=== PATIENT | male | born 1970 | race American Indian/Alaskan Native ===

== ENCOUNTER 2017-12-08 06:43 | Emergency (ER) | payer OTHER ==
[2017-12-08] MEDS ORDERED: NACL 0.9% 1000 ML 1,000 ML IV ONE (06:57)
[2017-12-08 07:36] LABS: Bilirubin,Urine NEG (Negative); Blood,Urine SM (Negative); Color,Urine Yellow (Yellow); Mucus,Urine FEW /HPF; Urobilinogen,Urine < 2.0 mg/dL (<2.0)
[2017-12-08 07:58] LABS: Alanine Aminotransferase 34 units/L (7-56); Albumin 4.6 g/dL (3.9-5); BUN/Creatinine Ratio 13; Blood Urea Nitrogen 12 mg/dL (9-20); Calcium 9.7 mg/dL (8.4-10.2); Hemolysis Index 58
[2017-12-08 08:07] LABS: Basophils # (Auto) 0.1 K/mm3 (0.0-0.1); Basophils % (Auto) 1.3 % (0.0-1.8); Eosinophils % (Auto) 0.1 % (0.0-4.3); Hematocrit 43.9 % (35.5-45.6); Hemoglobin 15.2 gm/dl (11.8-15.2); Lymphocytes # (Auto) 1.5 K/mm3 (1.2-5.4); Lymphocytes % (Auto) 22.9 % (13.4-35.0); Mean Corpuscular HGB Conc 35 % (32-34); Mean Corpuscular Hemoglobin 34 pg (28-32); Mean Corpuscular Volume 97 fl (84-94); Monocytes # (Auto) 0.8 K/mm3 (0.0-0.8); Monocytes % (Auto) 12.7 % (0.0-7.3); Platelet Count 198 K/mm3 (140-440); Red Blood Count 4.51 M/mm3 (3.65-5.03)
[2017-12-08 08:39] VITALS: BP 143/96
--- NOTE | 2017-12-08 09:06 | Emergency Department Report ---
ED Abdominal Pain HPI - General Chief Complaint: Abdominal Pain Stated Complaint: ABD PAIN Time Seen by Provider: 12/08/17 09:01 Source: patient Mode of arrival: Ambulatory Limitations: No Limitations - History of Present Illness Initial Comments: Patient is a 47-year-old male presents to emergency room with complaints of epigastric pain that started 2 days ago. Patient states that he had nausea and vomiting 1 this morning. Patient states he has a history of GERD and peptic ulcers. Patient states that he is been taking his Nexium regularly but for the past 3 days patient has been eating hot wings and spicy food and fried foods. He denies fever or chills. Patient denies any other physical complaints or pain. Patient denies diarrhea. Patient denies nausea vomiting at this time. MD Complaint: abdominal pain -: Sudden Radiation: none Severity: severe Severity scale (0 -10): 8 Quality: burning Consistency: constant Improves With: medication, rest Worsens With: other (fried foods) Associated Symptoms: nausea, vomiting. denies: diarrhea, fever, chills, constipation, dysuria, hematemesis, hematochezia, melena, hematuria, anorexia, syncope Treatments Prior to Arrival: antacids - Related Data Home Medications Medication Instructions Recorded Confirmed Last Taken amLODIPine [Norvasc] 10 mg PO DAILY 02/26/13 02/13/15 02/26/13 Previous Rx's Medication Instructions Recorded Last Taken Type Famotidine [Pepcid] 20 mg PO BID #60 tablet 02/14/15 Unknown Rx Folic Acid [Folvite] 1 mg PO QDAY #30 tablet 02/14/15 Unknown Rx Metoprolol [Lopressor TAB] 12.5 mg PO BID #60 tablet 02/14/15 Unknown Rx Sodium Bicarbonate 325 mg PO DAILY #14 tablet 02/14/15 Unknown Rx Thiamine [Vitamin B-1] 100 mg PO QDAY #30 tablet 02/14/15 Unknown Rx Esomeprazole Magnesium [Nexium] 40 mg PO DAILY 30 Days #30 12/08/17 Unknown Rx capsule. Allergies Allergy/AdvReac Type Severity Reaction Status Date / Time No Known Allergies Allergy Verified 02/26/13 20:12 ED Review of Systems ROS: Stated complaint: ABD PAIN Other details as noted in HPI Constitutional: denies: chills, fever Eyes: denies: eye pain, eye discharge, vision change ENT: denies: ear pain, throat pain Respiratory: denies: cough, shortness of breath, wheezing Cardiovascular: denies: chest pain, palpitations Endocrine: no symptoms reported Gastrointestinal: abdominal pain, nausea, vomiting. denies: diarrhea Genitourinary: denies: urgency, dysuria Musculoskeletal: denies: back pain, joint swelling, arthralgia Skin: denies: rash, lesions Neurological: denies: headache, weakness, paresthesias Psychiatric: denies: anxiety, depression Hematological/Lymphatic: denies: easy bleeding, easy bruising ED Past Medical Hx - Past Medical History Previous Medical History?: Yes Hx Hypertension: Yes Hx Congestive Heart Failure: No Hx Diabetes: No Hx Deep Vein Thrombosis: No Hx Pulmonary Embolism: No Hx GERD: Yes Hx Renal Disease: No Hx Kidney Stones: No Hx Asthma: Yes Hx COPD: No Hx Tuberculosis: No Hx HIV: No - Surgical History Past Surgical History?: Yes Hx Coronary Stent: No Hx Open Heart Surgery: No Hx Pacemaker: No Hx Internal Defibrillator: No Additional Surgical History: Lipotripsy, Kidney stone removal surgery - Family History Family history: no significant - Social History Smoking Status: Never Smoker Substance Use Type: None - Medications Home Medications: Home Medications Medication Instructions Recorded Confirmed Last Taken Type amLODIPine [Norvasc] 10 mg PO DAILY 02/26/13 02/13/15 02/26/13 History Famotidine [Pepcid] 20 mg PO BID #60 tablet 02/14/15 Unknown Rx Folic Acid [Folvite] 1 mg PO QDAY #30 tablet 02/14/15 Unknown Rx Metoprolol [Lopressor TAB] 12.5 mg PO BID #60 tablet 02/14/15 Unknown Rx Sodium Bicarbonate 325 mg PO DAILY #14 tablet 02/14/15 Unknown Rx Thiamine [Vitamin B-1] 100 mg PO QDAY #30 tablet 02/14/15 Unknown Rx Esomeprazole Magnesium [Nexium] 40 mg PO DAILY 30 Days #30 12/08/17 Unknown Rx capsule. ED Physical Exam - General Limitations: No Limitations General appearance: alert, in no apparent distress - Head Head exam: Present: atraumatic, normocephalic - Eye Eye exam: Present: normal appearance - ENT ENT exam: Present: mucous membranes moist - Neck Neck exam: Present: normal inspection - Respiratory Respiratory exam: Present: normal lung sounds bilaterally. Absent: respiratory distress - Cardiovascular Cardiovascular Exam: Present: regular rate, normal rhythm. Absent: systolic murmur, diastolic murmur, rubs, gallop - GI/Abdominal GI/Abdominal exam: Present: soft, tenderness (epigastric tenderness noted), normal bowel sounds - Rectal Rectal exam: Present: deferred - Extremities Exam Extremities exam: Present: normal inspection - Back Exam Back exam: Present: normal inspection - Neurological Exam Neurological exam: Present: alert, oriented X3 - Psychiatric Psychiatric exam: Present: normal affect, normal mood - Skin Skin exam: Present: warm, dry, intact, normal color. Absent: rash ED Course Vital Signs 12/08/17 12/08/17 06:42 08:31 Temperature 99.4 F 98.4 F Pulse Rate 98 H 86 Respiratory 18 18 Rate Blood Pressure 149/93 143/96 O2 Sat by Pulse 98 100 Oximetry - Reevaluation(s) Reevaluation #1: Discussed all results with patient. Discussed discharge with patient. We'll give patient a GI cocktail and reassess patient. 12/08/17 10:31 Reevaluation #2: Patient state his symptoms are gone. Patient denies any abdominal pain or discomfort. Patient is stable for discharge. Patient given discharge instructions. Patient denies nausea and vomiting at this time. Patient denies any physical complaints or other complaints as well. Discussed all results with patient. Patient voiced understanding. 12/08/17 11:30 ED Medical Decision Making - Lab Data Result diagrams: 12/08/17 07:29 12/08/17 07:25 - Medical Decision Making H and is a 47-year-old male that presents emergency room with complaints of epigastric abdominal pain. Patient found to have gastritis and uncontrolled reflux. Laboratory findings negative. Lipase negative. Patient instructed to follow up with primary care and GI for further evaluation treatment. Patient states after GI cocktail his SYMPTOMS HAVE RESOLVED. PATIENT IS STABLE FOR DISCHARGE. SHE WAS CURRENTLY TAKING NEXIUM 20 MG DAILY. WE'LL INCREASE PATIENT 'S NEXIUM TO 40 MG DAILY. - Differential Diagnosis gastritis. Nausea vomiting. Reflux. Abdominal pain. Gastroenteritis Critical care attestation.: If time is entered above; I have spent that time in minutes in the direct care of this critically ill patient, excluding procedure time. ED Disposition Clinical Impression: Gastritis Qualifiers: Gastritis type: unspecified gastritis Chronicity: acute Gastritis bleeding: without bleeding Qualified Code(s): K29.00 - Acute gastritis without bleeding Abdominal pain Qualifiers: Abdominal location: epigastric Qualified Code(s): R10.13 - Epigastric pain Disposition: TO HOME OR SELFCARE Is pt being admited?: No Does the pt Need Aspirin: No Condition: Stable Instructions: Gastritis (ED), Diet for Ulcers and Gastritis (ED) Additional Instructions: Patient follow-up with primary care in 3-5 days. Patient follow up with GI in 3 -5 days. Patient to take meds as directed. Patient to increase water. Patient take Tylenol when necessary for pain. Patient eat a GERD/gastritis diet. Patient to return to ER if condition worsens Prescriptions: Esomeprazole Magnesium [Nexium] 40 mg PO DAILY 30 Days #30 capsule. Referrals: PRIMARY CARE, [Primary Care Provider] - 3-5 Days Forms: Work/School Release Form(ED) Time of Disposition: 11:59
[2017-12-08] MEDS ORDERED: ALUM-MAG HYDROX-SIMETH 200-200-20MG/5ML PO ONE (10:24)
[2017-12-08] MEDS ORDERED: LIDOCAINE VISCOUS 2% PO ONE (10:24)
== END 2017-12-08 12:15 | disposition home or self-care (01) ==
LOC: ED 06:43
DX: K29.00 Acute gastritis without bleeding (principal); I10 Essential (primary) hypertension; J45.909 Unspecified asthma, uncomplicated; K21.9 Gastro-esophageal reflux disease without esophagitis
CPT/HCPCS: 36415; 80053; 81001; 83690; 85025; 99283

== ENCOUNTER 2019-05-24 18:18 | Emergency (ER) | payer SELFPAY ==
--- NOTE | 2019-05-24 19:24 | Emergency Department Report ---
Blank Doc - Documentation Documentation: 49-year-old male that presents with sukhdev flank pain. This initial assessment/diagnostic orders/clinical plan/treatment(s) is/are subject to change based on patient's health status, clinical progression and re- assessment by fellow clinical providers in the ED. Further treatment and workup at subsequent clinical providers discretion. Patient/guardians urged not to elope from the ED as their condition may be serious if not clinically assessed and managed. Initial orders include: 1- Patient sent to [facility] for further evaluation and treatment 2- UA
[2019-05-24 20:35] LABS: Bilirubin,Urine NEG (Negative); Blood,Urine NEG (Negative); Color,Urine Amber (Yellow); Mucus,Urine FEW /HPF; Urobilinogen,Urine < 2.0 mg/dL (<2.0)
[2019-05-24] MEDS ORDERED: KETOROLAC 30 MG/1 ML INJ IM ONE (21:21)
--- NOTE | 2019-05-24 21:25 | Emergency Department Report ---
<KEYSHAWN TAYLOR - Last Filed: 05/24/19 23:19> ED Back Pain/Injury HPI - General Chief Complaint: Back Pain/Injury Stated Complaint: BACK PAIN EXTREME Time Seen by Provider: 05/24/19 19:23 Source: patient Limitations: No Limitations - History of Present Illness Initial Comments: 49-year-old -[place]os[place] male with a past medical history of kidney stones presents to the emergency room for back pain 4 days. Patient does admit to some mild dysuria denies any pelvic pain denies any penile discharge nothing makes it worse nothing makes it better. Patient states his and taken Tylenol 650 about resolution of pain. States that the pain is constant and daily. MD Complaint: back pain Onset/Timin -: days(s) Similar Symptoms Previously: Yes (Kidney stones) Radiation: none Severity scale (0 -10): 8 Quality: aching Consistency: constant Improves With: none Worsens With: none - Related Data Home Medications Medication Instructions Recorded Confirmed Last Taken amLODIPine 10 mg PO DAILY 02/26/13 02/13/15 02/26/13 Previous Rx's Medication Instructions Recorded Last Taken Type Famotidine [Pepcid] 20 mg PO BID #60 tablet 02/14/15 Unknown Rx Folic Acid [Folvite] 1 mg PO QDAY #30 tablet 02/14/15 Unknown Rx Metoprolol [Lopressor TAB] 12.5 mg PO BID #60 tablet 02/14/15 Unknown Rx Sodium Bicarbonate 325 mg PO DAILY #14 tablet 02/14/15 Unknown Rx Thiamine [Vitamin B-1] 100 mg PO QDAY #30 tablet 02/14/15 Unknown Rx Esomeprazole Magnesium [Nexium] 40 mg PO DAILY 30 Days #30 12/08/17 Unknown Rx capsule. Ketorolac [Toradol] 10 mg PO Q6H PRN #20 tablet 05/25/19 Unknown Rx Oxycodone HCl/Acetaminophen 1 each PO Q6HR PRN #12 tablet 05/25/19 Unknown Rx [Percocet 7.5/325 mg] Tamsulosin [Flomax] 0.4 mg PO QDAY 5 Days #5 cap 05/25/19 Unknown Rx Allergies Allergy/AdvReac Type Severity Reaction Status Date / Time No Known Allergies Allergy Verified 02/26/13 20:12 ED Review of Systems Comment: All other systems reviewed and negative ED Past Medical Hx - Past Medical History Hx Hypertension: Yes Hx Congestive Heart Failure: No Hx Diabetes: No Hx Deep Vein Thrombosis: No Hx Pulmonary Embolism: No Hx GERD: Yes Hx Renal Disease: No Hx Kidney Stones: No Hx Asthma: Yes Hx COPD: No Hx Tuberculosis: No Hx HIV: No - Surgical History Hx Coronary Stent: No Hx Open Heart Surgery: No Hx Pacemaker: No Hx Internal Defibrillator: No Additional Surgical History: Lipotripsy, Kidney stone removal surgery - Social History Smoking Status: Never Smoker Substance Use Type: Alcohol - Medications Home Medications: Home Medications Medication Instructions Recorded Confirmed Last Taken Type amLODIPine 10 mg PO DAILY 02/26/13 02/13/15 02/26/13 History Famotidine [Pepcid] 20 mg PO BID #60 tablet 02/14/15 Unknown Rx Folic Acid [Folvite] 1 mg PO QDAY #30 tablet 02/14/15 Unknown Rx Metoprolol [Lopressor TAB] 12.5 mg PO BID #60 tablet 02/14/15 Unknown Rx Sodium Bicarbonate 325 mg PO DAILY #14 tablet 02/14/15 Unknown Rx Thiamine [Vitamin B-1] 100 mg PO QDAY #30 tablet 02/14/15 Unknown Rx Esomeprazole Magnesium [Nexium] 40 mg PO DAILY 30 Days #30 12/08/17 Unknown Rx capsule.dr Ketorolac [Toradol] 10 mg PO Q6H PRN #20 tablet 05/25/19 Unknown Rx Oxycodone HCl/Acetaminophen 1 each PO Q6HR PRN #12 tablet 05/25/19 Unknown Rx [Percocet 7.5/325 mg] Tamsulosin [Flomax] 0.4 mg PO QDAY 5 Days #5 cap 05/25/19 Unknown Rx ED Physical Exam - General Limitations: No Limitations General appearance: alert, in no apparent distress - Head Head exam: Present: atraumatic, normocephalic - Eye Eye exam: Present: normal appearance - ENT ENT exam: Present: mucous membranes moist - Neck Neck exam: Present: normal inspection - Respiratory Respiratory exam: Present: normal lung sounds bilaterally. Absent: respiratory distress - Cardiovascular Cardiovascular Exam: Present: regular rate, normal rhythm. Absent: systolic murmur, diastolic murmur, rubs, gallop - GI/Abdominal GI/Abdominal exam: Present: soft, normal bowel sounds - Rectal Rectal exam: Present: deferred - Extremities Exam Extremities exam: Present: normal inspection - Back Exam Back exam: Present: normal inspection - Neurological Exam Neurological exam: Present: alert, oriented X3 - Psychiatric Psychiatric exam: Present: normal affect, normal mood - Skin Skin exam: Present: warm, dry, intact, normal color. Absent: rash ED Medical Decision Making - Radiology Data Radiology results: report reviewed Patient: MIHAI SHELLEY MR#: [id number] : 1970 Acct:[id number] Age/Sex: 49 / M ADM Date: 05/24/19 Loc: ED Attending Dr: Ordering Physician: JOCELYN AYALA Date of Service: 05/24/19 Procedure(s): CT abdomen pelvis wo con Accession Number(s): [id number] cc: JOCELYN AYALA CT ABDOMEN AND PELVIS WITHOUT CONTRAST INDICATION / CLINICAL INFORMATION: back pain h/x renal stones. Bilateral flank pain. TECHNIQUE: Axial CT images were obtained through the abdomen and pelvis without IV contrast. All CT scans at this location are performed using CT dose reduction for ALARA by means of automated exposure control. COMPARISON: None available. FINDINGS: LOWER CHEST: Thickened distal thoracic esophagus. LIVER: No significant abnormality. GALLBLADDER: No significant abnormality. BILE DUCTS: No significant abnormality. PANCREAS: No significant abnormality. SPLEEN: No significant abnormality. ADRENALS: No significant abnormality. RIGHT KIDNEY and URETER: Severe chronic atrophy of the right kidney with severe hydroureteronephrosis with focal transition noted just below the right ureteropelvic junction of the mid right ureter. LEFT KIDNEY and URETER: Tiny nonobstructive stones. STOMACH and SMALL BOWEL: No significant abnormality. COLON: No significant abnormality. APPENDIX: No significant abnormality. PERITONEUM: No free fluid. No free air. No fluid collection. LYMPH NODES: No significant adenopathy. AORTA and ARTERIES: No significant abnormality. IVC and VEINS: No significant abnormality. URINARY BLADDER: No significant abnormality. REPRODUCTIVE ORGANS: No significant abnormality. ADDITIONAL FINDINGS: None. SKELETAL SYSTEM: No significant abnormality. IMPRESSION: 1. Chronic atrophy of the right kidney with severe right hydroureteronephrosis with transition noted within the mid right ureter. 2. Punctate stents within the left collecting system without evidence of hydronephrosis. 3. Few colonic diverticula without diverticulitis. 4. Abnormally thickened distal thoracic esophagus could represent esophagitis but is ultimately nonspecific. Signer Name: Zachary Barlow MD Signed: 05/24/2019 10:45 PM Workstation Name: [id number] Transcribed By: BC Dictated By: Zachary Barlow MD Electronically Authenticated By: Zachary Barlow MD Signed Date/Time: 05/24/192244 DD/ 40 TD/TT: - Medical Decision Making 49-year-old -[place] male with a past medical history of kidney stones presents to the emergency room for back pain 4 days. Patient does admit to some mild dysuria denies any pelvic pain denies any penile discharge nothing makes it worse nothing makes it better. Patient states his and taken Tylenol 650 about resolution of pain. States that the pain is constant and daily. CT of abdomen without contrast. Toradol 30 mg IM given for pain management. ED Disposition Disposition: DC-01 TO HOME OR SELFCARE Is pt being admited?: No Does the pt Need Aspirin: No Condition: Stable Instructions: Hydronephrosis (ED) Additional Instructions: Take medication as prescribed. Follow up with urology. Increase her fluid intake. Prescriptions: Tamsulosin [Flomax] 0.4 mg PO QDAY 5 Days #5 cap Oxycodone HCl/Acetaminophen [Percocet 7.5/325 mg] 1 each PO Q6HR PRN #12 tablet PRN Reason: Pain Ketorolac [Toradol] 10 mg PO Q6H PRN #20 tablet PRN Reason: Pain Referrals: PRIMARY CARE, [Primary Care Provider] - 3-5 Days SARIAH REY MD [Staff Physician] - 3-5 Days Forms: Work/School Release Form(ED) <JILLIAN CABALLERO III - Last Filed: 05/25/19 02:33> ED Review of Systems ROS: Stated complaint: BACK PAIN EXTREME Other details as noted in HPI ED Course Vital Signs 05/24/19 05/24/19 05/24/19 18:33 19:24 21:25 Temperature 98.8 F 98.8 F Pulse Rate 100 H 101 H Respiratory 16 18 16 Rate Blood Pressure 145/94 145/94 Blood Pressure [Left] O2 Sat by Pulse 97 97 Oximetry 05/25/19 02:25 Temperature 98.2 F Pulse Rate 74 Respiratory 16 Rate Blood Pressure Blood Pressure 144/95 [Left] O2 Sat by Pulse 97 Oximetry - Reevaluation(s) Reevaluation #1: I examined the patient. Patient states he is pain-free. Patient denies nausea vomiting at this time. I discussed plan of care outpatient. Patient agrees with plan of care. I discussed discharge instructions with patient. Patient voiced understanding of discharge instructions. Patient will be given a by mouth challenge and if patient tolerates patient will be discharged home. 05/25/19 01:32 ED Medical Decision Making - Lab Data Result diagrams: 05/24/19 23:29 05/24/19 23:29 Critical care attestation.: If time is entered above; I have spent that time in minutes in the direct care of this critically ill patient, excluding procedure time. ED Disposition Is pt being admited?: No Does the pt Need Aspirin: No Time of Disposition: 02:00
--- NOTE | 2019-05-24 22:50 | Cat Scan Report ---
CT ABDOMEN AND PELVIS WITHOUT CONTRAST INDICATION / CLINICAL INFORMATION: back pain h/x renal stones. Bilateral flank pain. TECHNIQUE: Axial CT images were obtained through the abdomen and pelvis without IV contrast. All CT scans at [facility] location are performed using CT dose reduction for ALARA by means of automated exposure control. COMPARISON: None available. FINDINGS: LOWER CHEST: Thickened distal thoracic esophagus. LIVER: No significant abnormality. GALLBLADDER: No significant abnormality. BILE DUCTS: No significant abnormality. PANCREAS: No significant abnormality. SPLEEN: No significant abnormality. ADRENALS: No significant abnormality. RIGHT KIDNEY and URETER: Severe chronic atrophy of the right kidney with severe hydroureteronephrosis with focal transition noted just below the right ureteropelvic junction of the mid right ureter. LEFT KIDNEY and URETER: Tiny nonobstructive stones. STOMACH and SMALL BOWEL: No significant abnormality. COLON: No significant abnormality. APPENDIX: No significant abnormality. PERITONEUM: No free fluid. No free air. No fluid collection. LYMPH NODES: No significant adenopathy. AORTA and ARTERIES: No significant abnormality. IVC and VEINS: No significant abnormality. URINARY BLADDER: No significant abnormality. REPRODUCTIVE ORGANS: No significant abnormality. ADDITIONAL FINDINGS: None. SKELETAL SYSTEM: No significant abnormality. IMPRESSION: 1. Chronic atrophy of the right kidney with severe right hydroureteronephrosis with transition noted within the mid right ureter. 2. Punctate stents within the left collecting system without evidence of hydronephrosis. 3. Few colonic diverticula without diverticulitis. 4. Abnormally thickened distal thoracic esophagus could represent esophagitis but is ultimately nonsp ecific. Signer Name: Zachary Barlow MD Signed: 05/24/2019 10:45 PM Workstation Name: [id number]
[2019-05-24] MEDS ORDERED: SODIUM CHLORIDE 0.9% 1000 ML 2,000 ML IV ONE (23:22)
[2019-05-24 23:48] LABS: Hematocrit 50.1 % (35.5-45.6); Mean Corpuscular HGB Conc 34 % (32-34); Mean Corpuscular Volume 99 fl (84-94); Platelet Count 209 K/mm3 (140-440); Red Blood Count 5.06 M/mm3 (3.65-5.03); Red Cell Distribution Width 13.6 % (13.2-15.2)
[2019-05-25 00:12] LABS: Alanine Aminotransferase 44 units/L (7-56); Albumin 5.1 g/dL (3.9-5); BUN/Creatinine Ratio 12; Blood Urea Nitrogen 15 mg/dL (9-20); Calcium 10.7 mg/dL (8.4-10.2); Hemolysis Index 5
[2019-05-25] MEDS ORDERED: MORPHINE 4 MG/1 ML INJ IV ONE (00:14)
[2019-05-25] MEDS ORDERED: ONDANSETRON 4 MG/2 ML INJ IV ONE (00:15)
[2019-05-25 02:26] VITALS: BP 144/95
== END 2019-05-25 02:26 | disposition home or self-care (01) ==
LOC: ED 18:18
DX: M54.9 Dorsalgia, unspecified (principal); R10.9 Unspecified abdominal pain; I10 Essential (primary) hypertension; J45.909 Unspecified asthma, uncomplicated; F10.10 Alcohol abuse, uncomplicated; Z87.442 Personal history of urinary calculi; Z79.899 Other long term (current) drug therapy
CPT/HCPCS: 36415; 74176; 80053; 81001; 85027; 96372; 96374; 96375; 99284; J1885; J2270; J2405; J7030

== ENCOUNTER 2019-07-20 13:15 | Emergency (ER) | payer SELFPAY ==
[2019-07-20] MEDS ORDERED: ALBUTEROL 2.5 MG/3 ML NEBU IH ONE (13:26)
[2019-07-20] MEDS ORDERED: IPRATROPIUM/ALBUTEROL SULFATE 3 ML AMPUL.NEB IH ONE (13:26)
[2019-07-20 13:27] VITALS: BP 132/90
[2019-07-20] MEDS ORDERED: methylPREDNISolone Sod Succinate 125 MG/2 ML INJ IV ONE (13:27)
[2019-07-20] MEDS ORDERED: MAGNESIUM SULFATE 2 GM/50 ML BAG IV ONE (13:27)
--- NOTE | 2019-07-20 13:29 | Emergency Department Report ---
Blank Doc - Documentation Documentation: asthma exacerbation. dyspnea plan asthma treatment track
[2019-07-20] MEDS ORDERED: SODIUM CHLORIDE 0.9% 1000 ML 1,000 ML IV ONE (13:40)
--- NOTE | 2019-07-20 14:06 | Emergency Department Report ---
ED Asthma HPI - General Chief Complaint: Dyspnea/Respdistress Stated Complaint: ASTHMA Time Seen by Provider: 07/20/19 13:24 Source: patient Mode of arrival: Ambulatory Limitations: No Limitations - History of Present Illness Initial Comments: 49-year-old -Finnish male with a past medical history of asthma presents to the emergency room with difficulty breathing x1 day and progressive gotten worse 1 hour prior to arrival. Patient states that any physical activity makes him short of breath. Patient reports is been out of his inhaler for a moment. Patient reports he does not have insurance so he has not been able to follow-up with her primary care provider. Patient denies any fever chills no nausea no vomiting no chest pain. Patient does admit to shortness of breath with minimal exertion. MD Complaint: "asthma attack" Onset/Timin -: days(s) Asthma History: history of prior ED visit Severity: severe - Related Data Current Asthma Therapy: none Home Medications Medication Instructions Recorded Confirmed Last Taken amLODIPine 10 mg PO DAILY 02/26/13 02/13/15 02/26/13 Previous Rx's Medication Instructions Recorded Last Taken Type Famotidine [Pepcid] 20 mg PO BID #60 tablet 02/14/15 Unknown Rx Folic Acid [Folvite] 1 mg PO QDAY #30 tablet 02/14/15 Unknown Rx Metoprolol [Lopressor TAB] 12.5 mg PO BID #60 tablet 02/14/15 Unknown Rx Sodium Bicarbonate 325 mg PO DAILY #14 tablet 02/14/15 Unknown Rx Thiamine [Vitamin B-1] 100 mg PO QDAY #30 tablet 02/14/15 Unknown Rx Esomeprazole Magnesium [Nexium] 40 mg PO DAILY 30 Days #30 12/08/17 Unknown Rx Ketorolac [Toradol] 10 mg PO Q6H PRN #20 tablet 05/25/19 Unknown Rx Oxycodone HCl/Acetaminophen 1 each PO Q6HR PRN #12 tablet 05/25/19 Unknown Rx [Percocet 7.5/325 mg] Tamsulosin [Flomax] 0.4 mg PO QDAY 5 Days #5 cap 05/25/19 Unknown Rx Albuterol Sulfate [Albuterol 0.63% 0.63 mg IH TID PRN #270 ml 07/20/19 Unknown Rx NEBS] Albuterol Sulfate [Proventil Hfa] 6.7 gm IH QID PRN #1 hfa.aer.ad 07/20/19 Unknown Rx Fluticasone/Salmeterol [Advair 1 puff IH BID #1 disk.w.dev 07/20/19 Unknown Rx Diskus 250-50 mcg] predniSONE [Deltasone] 40 mg PO QDAY 5 Days #10 tab 07/20/19 Unknown Rx Allergies Allergy/AdvReac Type Severity Reaction Status Date / Time No Known Allergies Allergy Verified 02/26/13 20:12 ED Review of Systems ROS: Stated complaint: ASTHMA Other details as noted in HPI Comment: All other systems reviewed and negative ED Past Medical Hx - Past Medical History Previous Medical History?: Yes Hx Hypertension: Yes Hx Congestive Heart Failure: No Hx Diabetes: No Hx Deep Vein Thrombosis: No Hx Pulmonary Embolism: No Hx GERD: Yes Hx Renal Disease: No Hx Kidney Stones: No Hx Asthma: Yes Hx COPD: No Hx Tuberculosis: No Hx HIV: No - Surgical History Past Surgical History?: Yes Hx Coronary Stent: No Hx Open Heart Surgery: No Hx Pacemaker: No Hx Internal Defibrillator: No Additional Surgical History: Lipotripsy, Kidney stone removal surgery - Social History Smoking Status: Never Smoker Substance Use Type: None - Medications Home Medications: Home Medications Medication Instructions Recorded Confirmed Last Taken Type amLODIPine 10 mg PO DAILY 02/26/13 02/13/15 02/26/13 History Famotidine [Pepcid] 20 mg PO BID #60 tablet 02/14/15 Unknown Rx Folic Acid [Folvite] 1 mg PO QDAY #30 tablet 02/14/15 Unknown Rx Metoprolol [Lopressor TAB] 12.5 mg PO BID #60 tablet 02/14/15 Unknown Rx Sodium Bicarbonate 325 mg PO DAILY #14 tablet 02/14/15 Unknown Rx Thiamine [Vitamin B-1] 100 mg PO QDAY #30 tablet 02/14/15 Unknown Rx Esomeprazole Magnesium [Nexium] 40 mg PO DAILY 30 Days #30 12/08/17 Unknown Rx capsule. Ketorolac [Toradol] 10 mg PO Q6H PRN #20 tablet 05/25/19 Unknown Rx Oxycodone HCl/Acetaminophen 1 each PO Q6HR PRN #12 tablet 05/25/19 Unknown Rx [Percocet 7.5/325 mg] Tamsulosin [Flomax] 0.4 mg PO QDAY 5 Days #5 cap 05/25/19 Unknown Rx Albuterol Sulfate [Albuterol 0.63% 0.63 mg IH TID PRN #270 ml 07/20/19 Unknown Rx NEBS] Albuterol Sulfate [Proventil Hfa] 6.7 gm IH QID PRN #1 hfa.aer.ad 07/20/19 Unknown Rx Fluticasone/Salmeterol [Advair 1 puff IH BID #1 disk.w.dev 07/20/19 Unknown Rx Diskus 250-50 mcg] predniSONE [Deltasone] 40 mg PO QDAY 5 Days #10 tab 07/20/19 Unknown Rx ED Physical Exam - General Limitations: No Limitations General appearance: alert, in distress, other (Not able to complete full sentences without getting short of breath) - Head Head exam: Present: atraumatic, normocephalic - Eye Eye exam: Present: normal appearance - ENT ENT exam: Present: mucous membranes moist - Respiratory Respiratory exam: Present: wheezes, decreased breath sounds - Cardiovascular Cardiovascular Exam: Present: tachycardia - GI/Abdominal GI/Abdominal exam: Present: soft, normal bowel sounds - Neurological Exam Neurological exam: Present: alert, oriented X3 - Psychiatric Psychiatric exam: Present: normal affect, normal mood - Skin Skin exam: Present: warm, dry, intact, normal color. Absent: rash ED Course Vital Signs 07/20/19 13:24 Temperature 98.0 F Pulse Rate 129 H Respiratory 129 H Rate Blood Pressure 132/90 Blood Pressure 132/90 [Right] O2 Sat by Pulse 98 Oximetry ED Medical Decision Making - Medical Decision Making 49-year-old -Finnish male with a past medical history of asthma presents to the emergency room with difficulty breathing x1 day and progressive gotten worse 1 hour prior to arrival. Patient states that any physical activity makes him short of breath. Patient reports is been out of his inhaler for a moment. Patient reports he does not have insurance so he has not been able to follow-up with her primary care provider. Patient denies any fever chills no nausea no vomiting no chest pain. Patient does admit to shortness of breath with minimal exertion. Patient has been evaluated by this provider at [facility]. Asthma protocol initiated in triage. Patient is currently getting duo neb, IV with normal saline, magnesium 2 g IV, chest x-ray, Solu-Medrol. Critical care attestation.: If time is entered above; I have spent that time in minutes in the direct care of this critically ill patient, excluding procedure time. ED Disposition Clinical Impression: Asthma exacerbation Disposition: TO HOME OR SELFCARE Is pt being admited?: No Does the pt Need Aspirin: No Condition: Stable Instructions: Asthma (ED) Prescriptions: Fluticasone/Salmeterol [Advair Diskus 250-50 mcg] 1 puff IH BID #1 disk.w.dev Albuterol Sulfate [Albuterol 0.63% NEBS] 0.63 mg IH TID PRN #270 ml PRN Reason: Wheezing predniSONE [Deltasone] 40 mg PO QDAY 5 Days #10 tab Albuterol Sulfate [Proventil Hfa] 6.7 gm IH QID PRN #1 hfa.aer.ad PRN Reason: Shortness Of Breath Referrals: HAI FERREIRA MD [Staff Physician] - 3-5 Days MARIO DOUGLAS MD [Staff Physician] - 3-5 Days Forms: Work/School Release Form(ED)
--- NOTE | 2019-07-20 14:12 | XRay Report ---
CHEST 2 VIEWS INDICATION / CLINICAL INFORMATION: Dyspnea. COMPARISON: 2 views of the chest from 02/13/2015. FINDINGS: SUPPORT DEVICES: None. HEART / MEDIASTINUM: No significant abnormality. LUNGS / PLEURA: No significant pulmonary or pleural abnormality. No pneumothorax. ADDITIONAL FINDINGS: No significant additional findings. IMPRESSION: 1. No acute abnormality of the chest. Signer Name: Julian Morrison MD Signed: 07/20/2019 2:08 PM Workstation Name: [id number]
== END 2019-07-20 15:46 | disposition home or self-care (01) ==
LOC: ED 13:15
DX: J45.901 Unspecified asthma with (acute) exacerbation (principal); I10 Essential (primary) hypertension; K21.9 Gastro-esophageal reflux disease without esophagitis; Z98.890 Other specified postprocedural states; Z79.899 Other long term (current) drug therapy
CPT/HCPCS: 36415; 71046; 83735; 94644; 96365; 96375; 99284; J2930; J3475; J7030

== ENCOUNTER 2021-06-15 20:32 | Emergency (ER) | payer OTHER ==
[2021-06-15] MEDS ORDERED: IPRATROPIUM 0.02% NEBU 2.5 ML IH ONE (21:17)
[2021-06-15] MEDS ORDERED: ALBUTEROL 2.5 MG/3 ML NEBU IH ONE (21:17)
--- NOTE | 2021-06-15 21:20 | Emergency Department Report ---
ED Asthma HPI - General Chief Complaint: Dyspnea/Respdistress Stated Complaint: SOB Time Seen by Provider: 06/15/21 21:15 Source: patient, EMS Mode of arrival: Stretcher Limitations: No Limitations - History of Present Illness Initial Comments: Patient is 51 years old male with history of asthma. Patient brought to the emergency room via EMS for evaluation of asthma attack. Patient stated the symptoms started this morning with shortness of breath and wheezing. Patient stated that he is out of his asthma medicine. Patient received albuterol 5 mg and Solu-Medrol 125 mg and magnesium sulfate 2 mg by EMS with some improvement. Upon arrival to the ER patient still with diffuse wheezing and accessory muscle use. Patient received 10 mg of albuterol and 1 mg of Atrovent. MD Complaint: "asthma attack", shortness of breath, wheezing -: This morning Severity: moderate Treatments Prior to Arrival: inhaled bronchodilator, IV steroid - Related Data Current Asthma Therapy: inhaled bronchodilator, inhaled steroid Home Medications Medication Instructions Recorded Confirmed Last Taken amLODIPine 10 mg PO DAILY 02/26/13 02/13/15 02/26/13 Previous Rx's Medication Instructions Recorded Last Taken Type Famotidine [Pepcid] 20 mg PO BID #60 tablet 02/14/15 Unknown Rx Folic Acid [Folvite] 1 mg PO QDAY #30 tablet 02/14/15 Unknown Rx Metoprolol [Lopressor TAB] 12.5 mg PO BID #60 tablet 02/14/15 Unknown Rx Sodium Bicarbonate 325 mg PO DAILY #14 tablet 02/14/15 Unknown Rx Thiamine [Vitamin B-1] 100 mg PO QDAY #30 tablet 02/14/15 Unknown Rx Esomeprazole Magnesium [Nexium] 40 mg PO DAILY 30 Days #30 12/08/17 Unknown Rx fátima. Ketorolac [Toradol] 10 mg PO Q6H PRN #20 tablet 05/25/19 Unknown Rx Oxycodone HCl/Acetaminophen 1 each PO Q6HR PRN #12 tablet 05/25/19 Unknown Rx [Percocet 7.5/325 mg] Tamsulosin [Flomax] 0.4 mg PO QDAY 5 Days #5 cap 05/25/19 Unknown Rx Albuterol Sulfate [Albuterol 0.63% 0.63 mg IH TID PRN #270 ml 07/20/19 Unknown Rx NEBS] Albuterol Sulfate [Proventil Hfa] 6.7 gm IH QID PRN #1 hfa.aer.ad 07/20/19 Unknown Rx Fluticasone/Salmeterol [Advair 1 puff IH BID #1 disk.w.dev 07/20/19 Unknown Rx Diskus 250-50 mcg] predniSONE [Deltasone] 40 mg PO QDAY 5 Days #10 tab 07/20/19 Unknown Rx ALBUTEROL NEB's [Proventil 0.083% 2.5 mg IH TID PRN #30 nebu 06/15/21 Unknown Rx NEBS] Albuterol Mdi (or & Nicu Only) 2 puff IH QID PRN #1 inhalation 06/15/21 Unknown Rx [ProAir HFA Inhaler] Fluticasone/Salmeterol [Advair 1 puff IH BID #1 06/15/21 Unknown Rx Diskus 250-50 mcg] Prednisone [predniSONE 10 mg 10 mg PO .TAPER #1 tab.ds.pk 06/15/21 Unknown Rx (6-Day Pack, 21 Tabs)] amLODIPine 10 mg PO DAILY #30 tab 06/15/21 Unknown Rx Allergies Allergy/AdvReac Type Severity Reaction Status Date / Time No Known Allergies Allergy Verified 02/26/13 20:12 ED Review of Systems ROS: Stated complaint: SOB Other details as noted in HPI Comment: All other systems reviewed and negative Constitutional: denies: chills, fever Respiratory: shortness of breath, SOB with exertion, SOB at rest, wheezing. denies: cough Cardiovascular: denies: chest pain, palpitations Gastrointestinal: denies: abdominal pain, nausea, vomiting, diarrhea Musculoskeletal: denies: back pain Neurological: denies: headache, weakness, numbness, paresthesias, confusion ED Past Medical Hx - Past Medical History Hx Hypertension: Yes Hx Congestive Heart Failure: No Hx Diabetes: No Hx Deep Vein Thrombosis: No Hx Pulmonary Embolism: No Hx GERD: Yes Hx Renal Disease: No Hx Kidney Stones: No Hx Asthma: Yes Hx COPD: No Hx Tuberculosis: No Hx HIV: No - Surgical History Hx Coronary Stent: No Hx Open Heart Surgery: No Hx Pacemaker: No Hx Internal Defibrillator: No Additional Surgical History: Lipotripsy, Kidney stone removal surgery - Social History Smoking Status: Never Smoker Substance Use Type: None - Medications Home Medications: Home Medications Medication Instructions Recorded Confirmed Last Taken Type amLODIPine 10 mg PO DAILY 02/26/13 02/13/15 02/26/13 History Famotidine [Pepcid] 20 mg PO BID #60 tablet 02/14/15 Unknown Rx Folic Acid [Folvite] 1 mg PO QDAY #30 tablet 02/14/15 Unknown Rx Metoprolol [Lopressor TAB] 12.5 mg PO BID #60 tablet 02/14/15 Unknown Rx Sodium Bicarbonate 325 mg PO DAILY #14 tablet 02/14/15 Unknown Rx Thiamine [Vitamin B-1] 100 mg PO QDAY #30 tablet 02/14/15 Unknown Rx Esomeprazole Magnesium [Nexium] 40 mg PO DAILY 30 Days #30 12/08/17 Unknown Rx capsule. Ketorolac [Toradol] 10 mg PO Q6H PRN #20 tablet 05/25/19 Unknown Rx Oxycodone HCl/Acetaminophen 1 each PO Q6HR PRN #12 tablet 05/25/19 Unknown Rx [Percocet 7.5/325 mg] Tamsulosin [Flomax] 0.4 mg PO QDAY 5 Days #5 cap 05/25/19 Unknown Rx Albuterol Sulfate [Albuterol 0.63% 0.63 mg IH TID PRN #270 ml 07/20/19 Unknown Rx NEBS] Albuterol Sulfate [Proventil Hfa] 6.7 gm IH QID PRN #1 hfa.aer.ad 07/20/19 Unknown Rx Fluticasone/Salmeterol [Advair 1 puff IH BID #1 disk.w.dev 07/20/19 Unknown Rx Diskus 250-50 mcg] predniSONE [Deltasone] 40 mg PO QDAY 5 Days #10 tab 07/20/19 Unknown Rx ALBUTEROL NEB's [Proventil 0.083% 2.5 mg IH TID PRN #30 nebu 06/15/21 Unknown Rx NEBS] Albuterol Mdi (or & Nicu Only) 2 puff IH QID PRN #1 inhalation 06/15/21 Unknown Rx [ProAir HFA Inhaler] Fluticasone/Salmeterol [Advair 1 puff IH BID #1 06/15/21 Unknown Rx Diskus 250-50 mcg] Prednisone [predniSONE 10 mg 10 mg PO .TAPER #1 tab.ds.pk 06/15/21 Unknown Rx (6-Day Pack, 21 Tabs)] amLODIPine 10 mg PO DAILY #30 tab 06/15/21 Unknown Rx ED Physical Exam - General Limitations: No Limitations General appearance: alert, in distress - Head Head exam: Present: atraumatic, normocephalic, normal inspection - ENT ENT exam: Present: normal exam, normal orophraynx, mucous membranes moist - Neck Neck exam: Present: normal inspection, full ROM. Absent: tenderness, meningismus - Respiratory Respiratory exam: Present: respiratory distress, wheezes, rhonchi, accessory muscle use, decreased breath sounds, prolonged expiratory. Absent: rales - Cardiovascular Cardiovascular Exam: Present: tachycardia - GI/Abdominal GI/Abdominal exam: Present: soft, normal bowel sounds. Absent: distended, tenderness, guarding, rebound, rigid, organomegaly, mass, bruit, pulsatile mass, hernia - Extremities Exam Extremities exam: Present: normal inspection, full ROM, normal capillary refill. Absent: tenderness - Back Exam Back exam: Present: normal inspection, full ROM. Absent: CVA tenderness (R), CVA tenderness (L) - Neurological Exam Neurological exam: Present: alert, oriented X3, CN II-XII intact, normal gait, reflexes normal. Absent: motor sensory deficit - Psychiatric Psychiatric exam: Present: normal mood - Skin Skin exam: Present: warm, intact, normal color ED Course Vital Signs 06/15/21 06/15/21 06/15/21 21:16 21:20 21:22 Temperature 98.4 F Pulse Rate 130 H 112 H Respiratory 24 25 H Rate Blood Pressure 150/90 145/110 [Left] O2 Sat by Pulse 94 96 Oximetry ED Medical Decision Making - Lab Data Result diagrams: 06/15/21 21:19 06/15/21 21:19 - Radiology Data Radiology results: report reviewed - Medical Decision Making Patient is 51 years old male with history of asthma. Patient brought to the emergency room via EMS for evaluation of asthma attack. Patient stated the symptoms started this morning with shortness of breath and wheezing. Patient stated that he is out of his asthma medicine. Patient received albuterol 5 mg and Solu-Medrol 125 mg and magnesium sulfate 2 mg by EMS with some improvement. Upon arrival to the ER patient still with diffuse wheezing and accessory muscle use. Patient received 10 mg of albuterol and 1 mg of Atrovent. Patient stated that he is feeling much better. Exam showed no wheezing or decreased breath sound. Labs reviewed and is unremarkable. Chest x-ray is negative for acute finding. Patient given a refill of his medication and advised to follow-up with his primary care physician in the next 2 to 3 days and to return to the ER if he develop any new symptoms. Critical care attestation.: If time is entered above; I have spent that time in minutes in the direct care of this critically ill patient, excluding procedure time. ED Disposition Clinical Impression: Acute asthma exacerbation Disposition: 01 HOME / SELF CARE / HOMELESS Is pt being admited?: No Condition: Stable Instructions: Asthma, Adult Prescriptions: Fluticasone/Salmeterol [Advair Diskus 250-50 mcg] 1 puff IH BID #1 amLODIPine 10 mg PO DAILY #30 tab Prednisone [predniSONE 10 mg (6-Day Pack, 21 Tabs)] 10 mg PO .TAPER #1 tab.ds.pk Albuterol Mdi (or & Nicu Only) [ProAir HFA Inhaler] 2 puff IH QID PRN #1 inhalation PRN Reason: Shortness Of Breath ALBUTEROL NEB's [Proventil 0.083% NEBS] 2.5 mg IH TID PRN #30 nebu PRN Reason: Wheezing Referrals: PRIMARY CARE, [Referring] - 3-5 Days
--- NOTE | 2021-06-15 21:39 | XRay Report ---
CHEST 1 VIEW 06/15/2021 9:22 PM INDICATION / CLINICAL INFORMATION: SOB. COMPARISON: 07/20/2019 FINDINGS: SUPPORT DEVICES: None. HEART / MEDIASTINUM: No significant abnormality. LUNGS / PLEURA: No significant pulmonary or pleural abnormality. No pneumothorax. ADDITIONAL FINDINGS: No significant additional findings. IMPRESSION: 1. No acute findings. Signer Name: Bin Martin MD Signed: 06/15/2021 9:35 PM Workstation Name: [id number]
[2021-06-15 21:47] LABS: Basophils # (Auto) 0.1 K/mm3 (0.0-0.1); Basophils % (Auto) 1.1 % (0.0-1.8); Eosinophils # (Auto) 0.1 K/mm3 (0.0-0.4); Eosinophils % (Auto) 1.7 % (0.0-4.3); Hematocrit 44.4 % (35.5-45.6); Hemoglobin 14.6 gm/dl (11.8-15.2); Lymphocytes # (Auto) 1.3 K/mm3 (1.2-5.4); Lymphocytes % (Auto) 16.8 % (13.4-35.0); Mean Corpuscular HGB Conc 33 % (32-34); Mean Corpuscular Volume 96 fl (84-94); Monocytes # (Auto) 0.4 K/mm3 (0.0-0.8); Monocytes % (Auto) 5.9 % (0.0-7.3); Platelet Count 178 K/mm3 (140-440); Red Blood Count 4.63 M/mm3 (3.65-5.03); Red Cell Distribution Width 13.1 % (13.2-15.2)
[2021-06-15 22:10] LABS: BUN/Creatinine Ratio 15; Blood Urea Nitrogen 19 mg/dL (9-20); Calcium 9.2 mg/dL (8.4-10.2); Hemolysis Index 13
[2021-06-15 23:31] VITALS: BP 138/88
== END 2021-06-16 00:10 | disposition home or self-care (01) ==
LOC: ED 20:32
DX: J45.901 Unspecified asthma with (acute) exacerbation (principal); I10 Essential (primary) hypertension; J45.909 Unspecified asthma, uncomplicated
CPT/HCPCS: 36415; 71045; 80048; 85025; 94640; 94644; 99284